=== PATIENT | female | born 2000 | race Caucasian/White ===

== ENCOUNTER 2023-06-21 16:49 | Emergency (ER) | payer OTHER, SELFPAY ==
[2023-06-21 16:55] VITALS: BP 100/45; PULSE 81; RESP 14; TEMP 36.9; O2SAT 99; BMI 20.9
--- NOTE | 2023-06-21 18:26 | CRLHL7_ITS ---
For Patients: As a result of the Century Cures Act, medical imaging exams and procedure reports are released immediately into your electronic medical record. You may view this report before your referring provider. If you have questions, please contact your health care provider. Indication: Cough Technique: Chest 1 view Comparison: None Findings/Impression: Cardiovascular and mediastinum: Heart size and vasculature are normal in caliber and appearance. Mediastinum is within normal limits. Lungs and pleural space: Lungs are hyper expanded. No sign of infiltrate or mass. No sign of pleural effusion. No pneumothorax. Bones and soft tissues: No significant findings. Dictated by Yeny Ospina MD @ 06/21/2023 6:44:29 PM (Electronically Signed)
[2023-06-21] MEDS: 0.9 % SODIUM CHLORIDE 1000 ml 1,000 ML IV (18:43)
[2023-06-21] MEDS: ONDANSETRON 2 MG/ML inj 4 MG IVP (18:47)
[2023-06-21 18:50] LABS: Basophils Absolute Auto 0.03 K/uL (0.00-0.30); Basophils Percent Auto 0.4 % (0.0-3.0); Eosinophils Absolute Auto 0.02 K/uL (0.00-0.50); Eosinophils Percent Auto 0.3 % (0.0-7.0); Hematocrit 37.7 % (33.0-51.0); Hemoglobin* 12.5 gm/dL (12.0-16.0); Immature Granulocytes Abs Auto 0.01 K/uL (0.00-0.30); Immature Granulocytes Pct Auto 0.1 %; Lymphocytes Percent Auto 24.7 % (20-44); Mean Corpuscular HGB Conc 33 gm/dL (32-36); Mean Corpuscular Hemoglobin 31 pg (26-34); Mean Corpuscular Volume 94 fL (80-100); Monocytes Percent Auto 5.2 % (0.0-11.0); Neutrophils Absolute Auto 5.32 K/uL (1.7-7.0); Neutrophils Percent Auto 69.3 % (42.0-72.0); Platelet Count* 277 K/uL (140-440); RDW Coefficient of Variation % 11.5 % (11.5-15.5); Red Blood Count 4.01 m/uL (4.00-5.20); White Blood Count* 7.68 K/uL (4.50-11.00)
--- NOTE | 2023-06-21 18:50 | ED.GENADULT ---
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 She comes in today because she has had 3 days of nausea, vomiting, and diarrhea. She does not report any fever, cough, or shortness of breath. She arrives here with normal vital signs. Related Data Home Medications Medication Instructions Recorded Confirmed norgestimate 0.25 mg-ethinyl 1 tab PO DAILY 06/21/23 06/21/23 estradiol 35 mcg tablet (Sprintec (28)) Previous Rx's Medication Instructions Recorded ondansetron HCl 4 mg tablet 4 mg PO Q6H #10 tabs 06/21/23 Allergies Allergy/AdvReac Type Severity Reaction Status Date / Time No Known Drug Allergies Allergy Verified 06/21/23 16:54 Review of Systems Status of ROS: Reports: 10 or more systems reviewed and unremarkable except as noted in History and below Narrative: Constitutional: No fevers, no weight gain or loss. Eyes: No discharge. No vision changes. HENT: No congestion, no sore throat, no ear pain. Cardiovascular: No chest pain, no palpitations. Respiratory: No shortness of breath, no wheezes, no cough. Gastrointestinal: Diffuse abdominal pain. Vomiting and diarrhea with nausea. Genitourinary: No dysuria, no hematuria. Musculoskeletal: Normal range of motion. Skin: No rashes, no pruritis. Neurological: No dizziness, weakness, sensory change, speech change. Endo/Heme/Allergies: No bruising or bleeding. No polydipsia. Pysch: no suicidality, no anxiety, no insomnia. All other systems reviewed and are negative. Exam Narrative: Exam Narrative: Constitutional: Well-developed, well-nourished, no acute distress. HEENT: Normocephalic, atraumatic. Neck: Normal range of motion. Nontender. Supple. Heart: Regular. No murmurs. Normal rate. Intact distal pulses. Lungs: Clear to auscultation. No chest discomfort. No wheezes, rhonchi, or rales. Abdomen: Normal bowel sounds. Diffuse tenderness. No rebound tenderness. Genitalia: Deferred. Back: No midline tenderness. Normal range of motion. Extremities: Normal range of motion. No injury. Skin: Intact. No rash. Warm. No erythema or pallor. Neurologic: No altered sensation. No weakness. Alert and oriented. Psychiatric: No suicidality. No anxiety or depression. No insomnia. Nursing notes and vitals signs are reviewed. Const: Vital Signs, click to edit/add: Vital Signs - 24 hr 06/21/23 16:55 Temperature 98.4 F Pulse Rate [Pulse Oximeter] 81 Respiratory Rate 14 Blood Pressure [Ri t Upper Arm] 100/45 L Pulse Oximetry 99 Oxygen Delivery Me thod Room Air Course Vital Signs Vital signs: Initial Vital Signs Temperature 98.4 F 06/21/23 16:55 Temperature Source Temporal Artery Scan 06/21/23 16:55 Pulse Rate 81 06/21/23 16:55 Pulse Rhythm Regular 06/21/23 16:55 Respiratory Rate 14 06/21/23 16:55 Blood Pressure 100/45 L 06/21/23 16:55 Blood Pressure Mean 63 L 06/21/23 16:55 Blood Pressure Position Sitting 06/21/23 16:55 Pulse Oximetry 99 06/21/23 16:55 Oxygen Delivery Method Room Air 06/21/23 16:55 Vital Signs Temperature 98.4 F 06/21/23 16:55 Pulse Rate 81 06/21/23 16:55 Respiratory Rate 14 06/21/23 16:55 Blood Pressure 100/45 L 06/21/23 16:55 Pulse Oximetry 99 06/21/23 16:55 Oxygen Delivery Method Room Air 06/21/23 16:55 Temperature 98.4 F 06/21/23 16:55 Pulse Rate 81 06/21/23 16:55 Respiratory Rate 14 06/21/23 16:55 Blood Pressure 100/45 L 06/21/23 16:55 Pulse Oximetry 99 06/21/23 16:55 Oxygen Delivery Method Room Air 06/21/23 16:55 Medications Administered Medications: Discontinued Medications Generic Name Dose Route Start Last Admin Trade Name Freq PRN Reason Stop Dose Admin Sodium Chloride 1,000 mls @ 1,000 mls/hr 06/21/23 18:30 06/21/23 19:38 0.9 % Sodium Chloride 1000 Ml IV 06/21/23 19:29 Infused .Q1H APARNA Infusion Ondansetron HCl 4 mg 06/21/23 18:26 06/21/23 18:47 Ondansetron 2 Mg/Ml Inj IVP 06/21/23 18:27 4 mg ONCE ONE Administration Medical Decision Making MDM Narrative Medical decision making narrative: This patient comes in with vomiting and diarrhea symptoms as described above. An IV was established where she received a L of normal saline and 4 mg of Zofran. She states that she is feeling better with these treatments. Lab results returned with reassuring findings. The patient is okay to be discharged home and did receive a prescription for Zofran. I encouraged use of Imodium as needed for diarrhea. Lab Data Labs: Lab Results 06/21/23 Range/Units 18:40 WBC 7.68 (4.50-11.00) K/uL RBC 4.01 (4.00-5.20) m/uL Hgb 12.5 (12.0-16.0) gm/dL Hct 37.7 (33.0-51.0) % MCV 94 (80-100) fL MCH 31 (26-34) pg MCHC 33 (32-36) gm/dL RDW Coeff of Tawana 11.5 (11.5-15.5) % Plt Count 277 (140-440) K/uL Neut % (Auto) 69.3 (42.0-72.0) % Lymph % (Auto) 24.7 (20-44) % [place] % (Auto) 5.2 (0.0-11.0) % Eos % (Auto) 0.3 (0.0-7.0) % Baso % (Auto) 0.4 (0.0-3.0) % Neut # (Auto) 5.32 (1.7-7.0) K/uL Lymph # (Auto) 1.90 (0.90-2.90) K/uL [place] # (Auto) 0.40 (0.00-0.90) K/UL Eos # (Auto) 0.02 (0.00-0.50) K/uL Baso # (Auto) 0.03 (0.00-0.30) K/uL Abs Immat Gran (auto) 0.01 (0.00-0.30) K/uL Imm/Tot Granulo (auto) 0.1 % Sodium 139 (135-149) mmol/L Potassium 3.5 L (3.6-5.1) mmol/L Chloride 101 (96-114) mmol/L Carbon Dioxide 24 (20-32) mmol/L Anion Gap 14 (7-15) mEq/L BUN 13 (5-24) mg/dL Creatinine 0.4 L (0.5-1.5) mg/dL Estimated Creat Clear 184.04 Estimated GFR 144 ml/min Glucose 91 (60-115) mg/dL Calcium 9.5 (8.4-10.6) mg/dL Imaging Data Chest x-ray: Radiologist's impression: Cardiovascular and mediastinum: Heart size and vasculature are normal in caliber and appearance. Mediastinum is within normal limits. Lungs and pleural space: Lungs are hyper expanded. No sign of infiltrate or mass. No sign of pleural effusion. No pneumothorax. Discharge Plan Discharge Clinical Impression: Gastroenteritis Patient Disposition: Home, Self-Care Condition: Stable Additional Instructions: Use Zofran as needed and directed for nausea symptoms. Use Imodium as directed also for diarrhea symptoms. Increase diet and liquids as tolerated. Follow up with MD return if worsening. Prescriptions: New ondansetron HCl 4 mg tablet 4 mg PO Q6H Qty: 10 0RF No Action norgestimate-ethinyl estradiol [Sprintec (28)] 0.25-35 mg-mcg tablet 1 tab PO DAILY Follow Up/Referrals: Allie Alvarado MD [Primary Care Provider] - Stand Alone Forms: [employer] Info Instructions
[2023-06-21 18:51] LABS: Slide Review Reflex No
[2023-06-21 19:09] LABS: Chloride* 101 mmol/L (96-114)
[2023-06-21 19:10] LABS: Potassium* 3.5 mmol/L (3.6-5.1); Sodium* 139 mmol/L (135-149)
[2023-06-21 19:12] LABS: Creatinine* 0.4 mg/dL (0.5-1.5); Est. Creatinine Clearance* 184.04; Estimated Glomerular Filt Rate 144 ml/min
[2023-06-21 19:13] LABS: Blood Urea Nitrogen* 13 mg/dL (5-24); Calcium* 9.5 mg/dL (8.4-10.6); Carbon Dioxide* 24 mmol/L (20-32); Glucose* 91 mg/dL (60-115)
[2023-06-21 19:17] LABS: Anion Gap 14 mEq/L (7-15)
== END 2023-06-21 20:08 | disposition home or self-care (01) ==
PROVIDERS: Emergency Provider Emergency Medicine Emergency Medical Services; PCP Family Medicine
DX: K52.9 Noninfective gastroenteritis and colitis, unspecified (principal)
CPT/HCPCS: 36415; 71045; 80048; 85025; 96374; 99283; 99284; J2405; J7030

== ENCOUNTER 2024-06-12 09:09 | Outpatient (CLI) | payer OTHER, SELFPAY | END 2024-06-12 09:10 | disposition home or self-care (01) | LOC: NFLDREF 06-13 08:21 | PROVIDERS: PCP Family Medicine; Referring Provider Family Medicine; Visit Provider Nurse Practitioner | DX: N89.8 Other specified noninflammatory disorders of vagina (principal); B37.31 Acute candidiasis of vulva and vagina | CPT/HCPCS: 87086 ==

== ENCOUNTER 2024-10-14 13:51 | Outpatient (CLI) | payer OTHER, SELFPAY | END 2024-10-14 13:52 | disposition home or self-care (01) | LOC: US 13:51 | PROVIDERS: PCP Family Medicine; Visit Provider Obstetrics & Gynecology | DX: Z34.91 Encounter for supervision of normal pregnancy, unspecified, first trimester (principal); O20.9 Hemorrhage in early pregnancy, unspecified; O34.81 Maternal care for other abnormalities of pelvic organs, first trimester; N83.11 Corpus luteum cyst of right ovary; Z3A.01 Less than 8 weeks gestation of pregnancy | CPT/HCPCS: 76817 ==

== ENCOUNTER 2025-04-15 16:54 | Outpatient (CLI) | payer OTHER, SELFPAY ==
[2025-04-15 17:06] VITALS: PULSE 83; O2SAT 99
[2025-04-15 17:07] VITALS: BP 106/58; PULSE 78
[2025-04-15 17:16] VITALS: TEMP 37.1
[2025-04-15 17:22] LABS: Amnisure Rom* Negative
[2025-04-15 18:30] LABS: Appearance Urine Clear (Clear)
[2025-04-15 18:55] VITALS: PULSE 68; O2SAT 100
--- NOTE | 2025-04-15 18:59 | P.OBLDTN_ITS ---
OB - Triage/Final Diagnosis Visit Information Date of evaluation: 04/15/25 Narrative: The patient is a 25year old 3 para 1 at 33 4/7 weeks gestation who was seen in clinic yesterday by Dr Alvarado and noted intermittent leaking of fluid. Had negative BRIDGET swab and was told to come to L&D to get amniosure to rule out SROM. Pt did have intercourse the day prior. Dr Alvarado did speculum exam and reported moderate amount white d/c, she did not think appeared consistent with amniotic fluid per her report to me. Pt told RN at Center she has had intermittent cramping for about a week. no pattern. not increasing. Amniosure was negative. FHT 140's moderate variabiltiy, +accels, no decels. [place] with random contractions, no pattern. Plan d/c home with labor precautions. Follow up with Dr Alvarado as scheduled, sooner if needed. Evaluation Laboratory results: Laboratory Tests 04/15/25 04/15/25 Range/Units 18:10 17:03 Urine Color Yellow (Yellow) Urine Appearance Clear (Clear) Urine pH 7.0 (5.0-8.5) Ur Specific [place] 1.020 (1.000-1.030) Urine Protein Negative (Negative) Urine Glucose (UA) Negative (Negative) Urine Ketones Trace A (Negative) Urine Blood Negative (Negative) Urine Nitrite Negative (Negative) Urine Bilirubin Negative (Negative) Urine Urobilinogen 0.2 (0.2-1.0) Ur Leukocyte Esterase Negative (Negative) Membrane Rupture Negative Vital signs: Vital Signs - 24 hr 04/15/25 17:06 04/15/25 17:07 04/15/25 17:16 Temperature 98.8 F Pulse Rate 78 Blood Pressure 106/58 L Pulse Oximetry 99 04/15/25 18:55 Temperature Pulse Rate Blood Pressure Pulse Oximetry 100 Fetus (Single) Heart Rate Baseline: 140 Fetus (Infant A) Longterm Variability: Moderate (11-25) Monitor Accelerations: Present Monitor Decelerations: None
[2025-04-15 19:00] VITALS: PULSE 79; O2SAT 99
--- NOTE | 2025-04-15 19:11 | PC.OBNST ---
NST Note NST Note Start: 04/15/25 17:01 Freq: ONCE Status: Active Protocol: Document 04/15/25 19:08 TRICIA (Rec: 04/15/25 19:10 TRICIA Desktop) NST Note 3 Para (# of births) 1 EDC 05/30/25 Gestational Age In 33 Weeks & 4 Days Weeks & Days Patient Presented Other with Complaint(s) of Other Complaints questionable ROM Reactive Yes Appropriate for Yes Gestational Age MARVEL Whitlock RN Date 04/15/25 Reactive Yes Appropriate for Yes Gestational Age MARVEL Casanova RN Date 04/15/25 OB NST charge Yes Complete NST Note Yes via Write Note The provider's electronic signature indicates the NST is reactive/appropriate for gestational age. *Note to provider: If an addendum is required, open the patient's chart and click on the note under the Nurse/Allied Health tab.
== END 2025-04-15 19:05 | disposition home or self-care (01) ==
LOC: OB OUT 16:54 → OB 17:01
PROVIDERS: PCP Family Medicine; Visit Provider Family Medicine
DX: O47.03 False labor before 37 completed weeks of gestation, third trimester (principal); Z3A.33 33 weeks gestation of pregnancy
CPT/HCPCS: 59025; 81003; 84112; G0463

== ENCOUNTER 2025-04-26 10:53 | Outpatient (CLI) | payer OTHER, SELFPAY ==
[2025-04-26 11:15] VITALS: BP 108/59; PULSE 83
[2025-04-26 11:18] VITALS: RESP 16; TEMP 37; O2SAT 98
[2025-04-26 11:33] LABS: Appearance Urine Slightly Cloudy (Clear)
[2025-04-26 11:45] LABS: Amnisure Rom* Negative
--- NOTE | 2025-04-26 12:28 | PC.OBNST ---
NST Note NST Note Start: 04/26/25 10:58 Freq: ONCE Status: Active Protocol: Document 04/26/25 12:27 LP (Rec: 04/26/25 12:28 LP No Response) NST Note 3 Para (# of births) 1 EDC 05/30/25 Gestational Age In 35 Weeks & 1 Days Weeks & Days Patient Presented Contractions/cramping,Leaking fluid,Headache with Complaint(s) of Reactive Yes Appropriate for Yes Gestational Age MARVEL Lopez RN Date 04/26/25 Reactive Yes Appropriate for Yes Gestational Age MARVEL Benítez RN Date 04/26/25 OB NST charge Yes Complete NST Note Yes via Write Note The provider's electronic signature indicates the NST is reactive/appropriate for gestational age. *Note to provider: If an addendum is required, open the patient's chart and click on the note under the Nurse/Allied Health tab.
== END 2025-04-26 12:10 | disposition home or self-care (01) ==
LOC: OB OUT 10:53 → OB 10:55
PROVIDERS: PCP Family Medicine; Visit Provider Family Medicine
DX: O47.03 False labor before 37 completed weeks of gestation, third trimester (principal); Z3A.35 35 weeks gestation of pregnancy
CPT/HCPCS: 59025; 80306; 81001; 81003; 84112; G0463

== ENCOUNTER 2025-05-05 17:01 | Outpatient (CLI) | payer OTHER, SELFPAY ==
[2025-05-05 17:19] VITALS: BP 110/61; PULSE 88
[2025-05-05 17:20] VITALS: RESP 18; TEMP 36.6
--- NOTE | 2025-05-05 17:56 | PM.OBLDTN ---
OB - Triage/Final Diagnosis Visit Information Time Seen by Provider: 17:45 Date Seen: 05/05/25 Narrative: The patient is a 25 year old 2 para 1 at 36.3 weeks gestation, who presents with headache, sinus congestion, sore throat, and uterine cramping. Reports that sore throat, congestion, and runny nose started about 2 days ago. Headache has been ongoing since that time as well and never fully gone away but intensity increases and decreases. Currently rates headache pain at 2-3/10 but at it's worst, can be 5-6/10. Denies blurry vision or other vision changes. No RUQ pain or edema. Has also had intermittent uterine cramping and contractions. No vaginal bleeding or LOF. Normal movement. Has had two episodes of cramping/contractions since arrival which were not picked up on tocometry Exam: Gen: alert, pleasant, NAD Head: no frontal or maxillary sinus tenderness to palpation. Resp: breathing comfortably on RA CV: extremities warm and well perfused; no LE edema Abd: gravid, nontender to palpation of RUQ SVE: posterior, 0 cm dilated A/P: Headache - suspect related to URI. COVID test pending along with pre-eclampsia labs. BP WNL. Reviewed supportive cares including nasal saline, Flonase, cetirizine, etc. Offered patient repeat dose of Tylenol (last dose around 12:30) but she declined. Uterine cramping - possible false labor/[place] montes as she has not made cervical change since last check around 35 weeks gestation. Offered IV fluids, which patient declined Encouraged her to work on PO hydration Pending return of labs and completion of NST, patient may be discharged home. Has f/up appointment on 05/07 with primary OB, Dr. Alvarado. Encouraged follow up sooner if changes in the interim. Evaluation Cervical dilation (cm): 0 Laboratory results: Laboratory Tests 05/05/25 05/05/25 Range/Units 17:44 17:42 WBC Pending RBC Pending Hgb Pending Hct Pending MCV Pending MCH Pending MCHC Pending Plt Count Pending BUN Pending Creatinine Pending Estimated GFR Pending AST Pending ALT Pending Urine Creatinine Pending Protein/Creatinin Ratio Pending Urine Total Protein Pending Urine Opiates Screen Pending Ur Oxycodone Screen Pending Urine Methadone Screen Pending Ur Barbiturates Screen Pending U Tricyclic Antidepress Pending Ur Phencyclidine Scrn Pending Ur Amphetamines Screen Pending U Methamphetamines Scrn Pending U Benzodiazepines Scrn Pending Urine Cocaine Screen Pending U Marijuana (THC) Screen Pending Ur Drug Screen Comment See Note SARS-CoV-2 (PCR) Pending Vital signs: Vital Signs - 24 hr 05/05/25 17:19 05/05/25 17:20 Temperature 97.8 F Pulse Rate 88 Respiratory Rate 18 Blood Pressure 110/61 Total Time Spent Total Time Spent: 45 minutes spent in chart review, examining patient, and documentation on day of encounter
[2025-05-05 17:57] LABS: Hematocrit* 32.1 % (33.0-51.0); Hemoglobin* 11.0 gm/dL (12.0-16.0); Mean Corpuscular HGB Conc 34 gm/dL (32-36); Mean Corpuscular Hemoglobin 32 pg (26-34); Mean Corpuscular Volume 93 fL (80-100); Red Blood Count* 3.45 m/uL (4.00-5.20); White Blood Count* 6.79 K/uL (4.50-11.00)
[2025-05-05 17:59] LABS: Slide Review Reflex No
[2025-05-05 18:02] LABS: Cannabinoid Screen Urine Negative (Negative); Methamphetamines Screen Urine Negative (Negative); Tricyclic Antidepressant Urine Negative (Negative)
[2025-05-05 18:16] LABS: Alanine Aminotransferase* 13 U/L (4-35); Aspartate Amino Transferase* 24 U/L (12-35); Blood Urea Nitrogen* 8 mg/dL (5-24); Creatinine* 0.5 mg/dL (0.5-1.5); Estimated Glomerular Filt Rate 135 ml/min
[2025-05-05 18:19] LABS: Protein Creatinine Ratio Urine 0.44 (0-0.19)
[2025-05-05 18:25] LABS: SARS PCR* Negative SARS-CoV-2 (Negative)
[2025-05-05 19:20] VITALS: BP 103/57; PULSE 75
[2025-05-05] MEDS: ACETAMINOPHEN 500 MG TABLET 1000 MG PO (19:28)
[2025-05-05 19:39] VITALS: BP 111/65; PULSE 68
[2025-05-05 20:02] VITALS: BP 102/64; PULSE 73
--- NOTE | 2025-05-05 21:31 | PC.OBNST ---
NST Note NST Note Start: 05/05/25 17:06 Freq: ONCE Status: Active Protocol: Document 05/05/25 21:10 CJM (Rec: 05/05/25 21:31 CJM No Response) NST Note 3 Para (# of births) 1 EDC 05/30/25 Gestational Age In 36 Weeks & 3 Days Weeks & Days Patient Presented Contractions/cramping,Headache with Complaint(s) of Other Complaints pt comes to triage with overall feeling unwell. Pt then starts having some contractions while here. Reactive Yes Appropriate for Yes Gestational Age RN Laura Gray Rn Date 05/05/25 Reactive Yes Appropriate for Yes Gestational Age MARVEL Shields MD Date 05/05/25 OB NST charge Yes Complete NST Note Yes via Write Note The provider's electronic signature indicates the NST is reactive/appropriate for gestational age. *Note to provider: If an addendum is required, open the patient's chart and click on the note under the Nurse/Allied Health tab.
[2025-05-07 11:24] LABS: Protein Creatinine Ratio Urine 0.29 (0-0.19)
[2025-05-07 11:28] LABS: Total Volume 24 Hour Urine 2300 ml; Urine Creatinine mg/24 Hour 1120 mg/Day
== END 2025-05-05 21:10 | disposition home or self-care (01) ==
LOC: OB OUT 17:02 → OB 17:03
PROVIDERS: PCP Family Medicine; Visit Provider Family Medicine
DX: O47.03 False labor before 37 completed weeks of gestation, third trimester (principal); Z3A.36 36 weeks gestation of pregnancy
CPT/HCPCS: 36415; 59025; 80306; 82565; 82570; 84156; 84450; 84460; 84520; 85027; 87086; 87635; G0463; A9270

== ENCOUNTER 2025-05-21 00:24 | Inpatient (IN) | payer OTHER, SELFPAY ==
[2025-05-20 21:53] VITALS: BP 116/68; PULSE 93
[2025-05-20 21:54] VITALS: PULSE 102; RESP 14; TEMP 37; O2SAT 97
[2025-05-20 22:15] LABS: Amnisure Rom* Negative
[2025-05-21] VITALS (48 sets, daily range): BP systolic 100–141; BP diastolic 55–77; PULSE 71–121; RESP 16–18; TEMP 36.4–37.2; O2SAT 97–100; BMI 28.3
[2025-05-21 01:00] LABS: Hematocrit* 30.1 % (33.0-51.0); Hemoglobin* 10.0 gm/dL (12.0-16.0); Immature Granulocytes Abs Auto 0.07 K/uL (0.00-0.30); Immature Granulocytes Pct Auto 0.8 %; Lymphocytes Absolute Auto 1.60 K/uL (0.90-2.90); Mean Corpuscular HGB Conc 33 gm/dL (32-36); Mean Corpuscular Hemoglobin 31 pg (26-34); Mean Corpuscular Volume 92 fL (80-100); RDW Coefficient of Variation % 11.9 % (11.5-15.5); Red Blood Count* 3.26 m/uL (4.00-5.20); White Blood Count* 8.86 K/uL (4.50-11.00)
[2025-05-21 01:01] LABS: Slide Review Reflex No
[2025-05-21] MEDS: AMPICILLIN 2 GM in 0.9 % SODIUM CHLORIDE Mini-bag 100 ML IVPB (01:35)
[2025-05-21 02:49] LABS: Cannabinoid Screen Urine Negative (Negative); Methamphetamines Screen Urine Negative (Negative); Tricyclic Antidepressant Urine Negative (Negative)
[2025-05-21] MEDS: AMPICILLIN 1 GM in 0.9 % SODIUM CHLORIDE Mini-bag 100 ML IVPB ×3 (05:40→13:24)
--- NOTE | 2025-05-21 07:52 | P.OBHP_ITS ---
OB - H&P: HPI Labor/Induction History of Present Illness Date Seen: 05/21/25 Chief Complaint: The patient is a 25 year old 3 para 1011 at 38+5 weeks gestation by 7 week US dating, who presents with painful, regular contractions. Chief complaint: maternity Narrative: Sydnee Jon is a 25 year old at 38+5 weeks by 7 week US here for labor. Patient developed painful, regular contractions late last night which brought her into L&D for evaluation. Cervix on arrival 2 cm and progressed to 3.5 cm an hour later. Contractions did space out overnight, but now this morning becoming stronger and more regular again. has been uncomplicated other than GBS+ testing. History of Present Dating criteria: based on 1st trimester US only care: good care Ultrasounds: normal 1st trimester US and normal mid trimester US Medical complications: psychiatric (is following with psychiatry for depression/anxiety) Labs Blood type: A (+) positive Rubella: immune RPR/VDLR: nonreactive GBS status: positive HBsAG: negative Review of Systems Status of ROS: Reports: 6 or more systems reviewed and unremarkable except as noted in History and below Meds Home Medications and Allergies Home Medications ?Medication ?Instructions ?Recorded ?Confirmed ?Type vitamins no.167-folic 1 tab PO QDAY 10/14/24 05/20/25 History acid 400 mcg-dha 25 mg chewable tablet (One-A-Day ) lamotrigine 200 mg tablet 200 mg PO DAILY 03/24/25 History ondansetron 4 mg disintegrating 4 mg PO Q8H PRN nausea /vomiting 03/24/25 05/20/25 History tablet Allergies Allergy/AdvReac Type Severity Reaction Status Date / Time No Known Drug Allergies Allergy Verified 05/20/25 22:28 OB - H&P: Exam Physical Exam: Vital signs: Temp Pulse Resp BP Pulse Ox 97.9 F 82 16 114/69 99 05/21/25 05:42 05/21/25 07:50 05/21/25 05:42 05/21/25 07:50 05/21/25 04:10 Constitutional: Constitutional: no acute distress Routine HEENT Exam: Head: Present atraumatic Eye: Present EOMI and normal appearance ENT: Present mucous membranes moist Routine Neck Exam: Neck: Present full ROM Routine Respiratory Exam: Respiratory: Present CTA bilaterally Routine Cardiovascular Exam: Cardiovascular: RRR Detailed Labor and Delivery Exam: Patient Gravid: yes Dilation (cm): 5 Effacement (%): 90 Cervix position: mid Consistency: soft Contraction frequency (min): 8 Contraction intensity: Strong/Firm Fetus (Single): Station: -1 Amniotic Membrane Status: AROM Amniotic Membrane Fluid Description: Clear Heart Rate Baseline: 130 Monitor Accelerations: Present Monitor Decelerations: None Care Home Variability: Moderate (6-25) Routine Extremities Exam: Extremities: Present full ROM and normal inspection Routine Back/Spine/Pelvis Exam: Back/Spine: full ROM Routine Skin Exam: Present intact and normal turgor Routine Neurological Exam: Present alert, oriented X3 and CN II-XII intact Routine Psychiatric Exam: Present normal affect and normal thought process OB - Results Labs Labs: Short CBC 05/21/25 Range/Units 00:54 WBC 8.86 (4.50-11.00) K/uL Hgb 10.0 L (12.0-16.0) gm/dL Hct 30.1 L (33.0-51.0) % Plt Count 281 (140-440) K/uL OB - Problem Based A/P Additional Plan (1) Active labor at term: Status: Acute (2) KARLA (generalized anxiety disorder): Status: Acute (3) Depression: Status: Acute (4) Positive GBS test: Status: Acute Plan Antibiotics have been started overnight for +GBS, will continue per protocol. Continue expectant management now that she has undergone AROM. HIV testing was inadvertently not done with labs, this has been ordered. Epidural per patient request. 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 Delivery/Labor/Induction Plan Plan: expectant management
[2025-05-21 09:15] LABS: HIV 1/2/P24 Combo Screen* Negative (Negative)
[2025-05-21] MEDS: LACTATED RINGERS 1000 ML 1,000 ML 1200 ML IV (12:18)
[2025-05-21] MEDS: LIDOCAINE 2% (PF) 5 ML VIAL EPIDURAL (12:55)
[2025-05-21] MEDS: ROPIVACAINE 0.2% 100 ml 100 ML 12 MG EPIDURAL (13:07)
--- NOTE | 2025-05-21 13:14 | PM.ANBPRC ---
[facility] Medical History (Updated 05/21/25 @ 08:06 by Allie Alvarado MD) Pyelonephritis ?N12 - Tubulo-interstitial nephritis, not specified as acute or chronic (ICD-10) KARLA (generalized anxiety disorder) ?F41.1 - Generalized anxiety disorder (ICD-10) Depression ?F32.A - Depression, unspecified (ICD-10) Family History (Updated 05/21/25 @ 08:03 by Allie Alvarado MD) Mother Alcohol dependence Maternal Grandmother Colon cancer Breast cancer Social History What is your current living situation?: I presently have a place to live Problems where you live: no known problems In the past 12 months, utilities in danger of being shut off: no In past 12 months, lack of transportation kept you from medical appts, meetings, work, or getting things needed for daily living: no In the past 12 mos, have been you worried that your food would run out before you had money to buy more?: never true In the past 12 mos, the food you bought just didn't last and you didn't have money to buy more?: never true Smoking Status: Never smoker How often does anyone, including family, friends and others, physically hurt you: never How often does anyone, including family, friends and others, insult or talk down to you: never How often does anyone, including family, friends and others, threaten you with harm: never How often does anyone, including family, friends and others, scream or curse at you: never Meds Home Medications and Allergies Home Medications ?Medication ?Instructions ?Recorded ?Confirmed ?Type vitamins no.167-folic 1 tab PO QDAY 10/14/24 05/20/25 History acid 400 mcg-dha 25 mg chewable tablet (One-A-Day ) lamotrigine 200 mg tablet 200 mg PO DAILY 03/24/25 05/20/25 History ondansetron 4 mg disintegrating 4 mg PO Q8H PRN nausea/vomiting 03/24/25 05/20/25 History tablet Allergies Allergy/AdvReac Type Severity Reaction Status Date / Time No Known Drug Allergies Allergy Verified 05/20/25 22:28 Results Labs Labs: Laboratory Results - last 24 hr 05/20/25 05/21/25 05/21/25 21:46 00:54 02:30 WBC 8.86 RBC 3.26 L Hgb 10.0 L Hct 30.1 L MCV 92 MCH 31 MCHC 33 RDW Coeff of Tawana 11.9 Plt Count 281 Neut % (Auto) 70.9 Lymph % (Auto) 17.9 L [place] % (Auto) 8.9 Eos % (Auto) 1.4 Baso % (Auto) 0.1 Neut # (Auto) 6.28 Lymph # (Auto) 1.60 [place] # (Auto) 0.80 Eos # (Auto) 0.12 Baso # (Auto) 0.01 Abs Immat Gran (auto) 0.07 Imm/Tot Granulo (auto) 0.8 Membrane Rupture Negative Urine Opiates Screen Negative Ur Oxycodone Screen Negative Urine Methadone Screen Negative Ur Barbiturates Screen Negative U Tricyclic Antidepress Negative Ur Phencyclidine Scrn Negative Ur Amphetamines Screen Negative U Methamphetamines Scrn Negative U Benzodiazepines Scrn Negative Urine Cocaine Screen Negative U Marijuana (THC) Screen Negative Ur Drug Screen Comment See Note HIV 1&2 Ab/P24 Ag 4thGn Negative Blood Type A Positive Antibody Screen NEGATIVE Vital Signs Vital Signs: Last Vital Signs Temp 98.5 F 05/21/25 12:41 Pulse 105 H 05/21/25 13:14 Resp 16 05/21/25 12:41 BP 115/63 05/21/25 13:14 Pulse Ox 99 05/21/25 13:12 Weight: 72.575 kg Height: 160.02 cm Anesthesia Procedures Epidural Insertion Patient Location: OB Start Time: 12:30 Stop Time: 13:15 Start Date: 05/21/25 Stop Date: 05/21/25 Reason for Block: procedure for pain Patient Position: sitting Performed By: Tg Lara Preanesthetic Checklist: IV checked, site marked, risks and benefits discussed, monitors and equipment checked, pre-op evaluation, timeout performed and anesthesia consent Prep: chlorhexidine gluconate Monitoring: blood pressure monitoring, continuous pulse oximetry and heart rate Approach: midline Vertebral Space: lumbar (1-5) Epidural Technique: JESSICA saline Needle Type: Tuohy needle Injection Technique: continuous catheter Needle gauge: 17 Needle Length (cm): 10 cm Needle Insertion Depth (cm): 5 Catheter Gauge: 19 Catheter Type: multi-orifice Catheter at skin depth (cm): 15 Test Dose Result: negative and lidocaine 1.5% with epinephrine 1 to 200,000
--- NOTE | 2025-05-21 13:27 | PM.OBPNL ---
Subjective Date Seen: 05/21/25 Narrative: Sydnee is a 25 yo at 38+5 here in active labor. Has made steady cervical change throughout the day, however contractions stronger about an hour ago and due to nly being 7 cm, requested an epidural. She is now comfortable and feeling intermittent pressure. She continues to leak clear fluid. Objective Vital Signs: Last Vital Signs Temp 98.5 F 05/21/25 12:41 Pulse 88 05/21/25 13:16 Resp 16 05/21/25 12:41 BP 112/63 05/21/25 13:16 Pulse Ox 99 05/21/25 13:12 Pelvic Exam Dilation (cm): 7 Effacement (%): 90 Station: 0 Contractions Monitor mode: External Contraction Frequency: 5 Contraction pattern: Regular Contraction intensity: Strong/Firm Assessment Assessment: active labor Station: 0 Amniotic Membrane Status: AROM Status: Category l Heart Rate Baseline: 130 Monitor Accelerations: Present Monitor Decelerations: None Plan Plan: Continue expectant management as long as making cervical change. Anticipate .
[2025-05-21] MEDS: CALCIUM CARBONATE 500 MG CHEW PO (14:27)
[2025-05-21] MEDS: OXYTOCIN 30 unit/500 ML in NS 30 UNIT/500 ML BAG IVPB (14:52)
[2025-05-21] MEDS: LACTATED RINGERS 1000 ML 1,000 ML 125 ML IV (15:00)
--- NOTE | 2025-05-21 15:37 | W.PM.VAGD1_ITS ---
Procedure Delivery date: 05/21/25 Procedure Done: Global Delivery augmentation: rupture of membranes Delivery monitor: external FHT and external uterine Route of delivery: Laceration description: None Estimated blood loss (mL): 50 Anesthesia type: Epidural Disposition: floor Narrative: The patient is a 25 year-old admitted on 05/20/2025 at 38 Weeks, 4 Days gestation for active labor.? Cervical exam on admission was 3.5 cm/60 % effaced/-2 station with membranes intact in vertex presentation.? Contractions were every 4-7 minutes.? heart rate demonstrated baseline 130 bpm with moderate variability, + accelerations, - decelerations; a category 1 tracing.? aROM occurred at 0742 with clear fluid. ? Labor Analgesia:? epidural ? Pitocin:? yes, with pushing and after delivery ? Labor onset:? 05/21/2025 0000 ? Complete:? 1507 ? Pushing:? 1515 ? heart tones during second stage were category 1. ? At 1524 a viable female delivered in vertex OA presentation over intact perineum via spontaneous vaginal delivery.? was placed on maternal abdomen.? Cord was clamped and cut after a 30-60 second delay.? Nose and mouth were bulb suctioned.? weight pending.? 9 at 1 minute and 9 at 5 minutes.? Shoulder dystocia: no.? Nuchal cord: no. ? Placenta delivered spontaneously and complete at 1529 with a 3 vessel cord. ? Mother and were stable after delivery. ? Lacerations:? 0 ? Blood loss: 50 mL. Blood loss measurement type: QBL ? Sponge and needles counts are correct. [place] Infant Infant Gender: Female presentation: vertex Placental Delivery Description: Spontaneous Cord Description: 3 Vessels
[2025-05-21] MEDS: IBUPROFEN 600 MG TABLET PO (18:41)
[2025-05-21] MEDS: ACETAMINOPHEN 500 MG TABLET 1000 MG PO (22:47)
[2025-05-21] MEDS: 5 % DEXTROSE/0.45% SOD CHLOR 1,000 ML 125 ML IV (23:01)
[2025-05-22] VITALS (20 sets, daily range): BP systolic 102–161; BP diastolic 62–87; PULSE 63–183; RESP 13–20; TEMP 36.6–37.3; O2SAT 94–99
[2025-05-22] MEDS: LACTATED RINGERS 1000 ML 1,000 ML 125 ML IV (06:28)
[2025-05-22 06:33] LABS: Hemoglobin* 9.4 gm/dL (12.0-16.0)
[2025-05-22] MEDS: 5 % DEXTROSE/0.45% SOD CHLOR 1,000 ML 125 ML IV (09:07)
--- NOTE | 2025-05-22 09:15 | PM.OBPNVD1 ---
OB - PN:Subj Subjective Time Seen by Provider: 07:45 Date Seen: 05/22/25 Interval history: 25 yo G3 now P2 PPD #1 from at 38+5 weeks. NPO for post- tubal ligation today. Overall feeling well. Bleeding is normal, like a heavy period. Voiding, no BM. Ibuprofen has been effective for pain control. Planning to breastfeed, but open to supplementation. not latching well. OB - PN: Obj Exam Physical Exam: Vital signs: Temp Pulse Resp BP Pulse Ox O2 Del Method 98.1 F 88 16 110/75 99 Room Air 05/22/25 03:45 05/22/25 08:20 05/22/25 08:20 05/22/25 08:20 05/22/25 08:20 05/22/25 08:20 Narrative: General appearance: Well-appearing adult female. Alert, oriented and appropriate. Sitting up in hospital bed. HEENT: EOMI, no conjunctival injection or discharge. MMM. Neck: Supple. CV: RRR, no rubs, murmurs or extra heart sounds. Pulm: CTAB, no wheezes, rales or rhonchi. Abdomen: Soft, mild tenderness. Fundus palpated 2 cm below the umbilicus. MSK: Moving all extremities. Ext: Warm and well-perfused. No LE edema. Skin: No rashes appreciated over exposed skin. Neuro: Grossly normal strength and sensation. No focal deficits. Psych: Normal affect. OB - PN: Obj Data Labs Labs: Laboratory Results - last 24 hr 05/21/25 05/22/25 00:54 05:46 Hgb 9.4 L HIV 1&2 Ab/P24 Ag 4thGn Negative OB - PN: A/P Delivery Assessment and Plan (1) Active labor at term: Problem details: on 05/21/25 at 38w5d. THC + in , UDS neg on admission. Planning PP tubal ligation 05/22/25. Status: Acute Assessment and Plan: - Normal post- cares - Tubal ligation today - Anticipate discahrge 05/23/25 (2) KARLA (generalized anxiety disorder): Status: Acute Assessment and Plan: - Continue lamotrigine 200 mg daily (3) Depression: Status: Acute Assessment and Plan: - Continue lamotrigine 200 mg daily (4) Positive GBS test: Status: Acute
--- NOTE | 2025-05-22 12:51 | P.EN_ITS ---
Chart Event Note Time Seen by Provider: 11:00 Date Seen: 05/22/25 Chart Event Note: Presented to patient's beside to discuss upcoming surgery and resign consent form. She understands the intended surgery: bilateral salpingectomy via mini- laparotomy for the purpose of permanent sterilization. We discussed risks/benefits/alternatives of permanent sterilization. We discussed that there should be clear understanding this is permanent and irreversible. The mechanism of action is to prevent conception by blocking transport of sperm from the lower genital tract to an ovulated oocytes. My preferred method of sterilization is salpingectomy. Salpingectomy is the removal of bilateral fallopian tubes. There is a potential opportunity to decrease the risk of ovarian cancer in patients who already are undergoing pelvic surgery for benign indications. It can decrease the risk of future ovarian cancer by as much as 40-60%. I informed patient that most women who choose sterilization do not regret their decision. CREST study report that 5 year risk of regret is about 7%. Cumulative risk of regret w/in 14 years of procedure is 20% for patient <30 y/o and 6% >30 years of age. Sterilization can be done at the time of delivery or after a vaginal delivery. Interval sterilization can also be performed but this is done laparoscopically. We discussed risks of surgery including pain, bleeding, infection, and damages to the surrounding structures of the operative site. We also reviewed postoperative expectations and recovery course. Patient is aware of alternatives such as medical contraception, LARCs, partner vasectomy etc. After counseling patient was clear and consistent with desire for permanent sterilization and would like to proceed. Consents signed.
[2025-05-22] MEDS: BUPIVACAINE 0.5 %/EPI 1:200K 30 ML INJECTION (13:05)
--- NOTE | 2025-05-22 13:46 | P.ANES_ITS ---
Anesthesia Charges Start Date/Time Anesthesia Start Date: 05/22/25 Anesthesia Start Time: 12:41 Stop Date/Time Anesthesia Stop Date: 05/22/25 Anesthesia Stop Time: 13:44 Coding CPT Codes CPT Codes: ANESTH SURG LOWER ABDOMEN - 50311 ([id number]) P2 - PATIENT W/MILD SYST DISEASE, QZ - HOUSING ASSISTANT PROPERTY MANAGER SVC W/O HEATING AND VENTILATION ENGINEER BY
--- NOTE | 2025-05-22 13:46 | W.ANESCHARGE ---
Anesthesia Charges Start Date/Time Anesthesia Start Date: 05/22/25 Anesthesia Start Time: 12:41 Stop Date/Time Anesthesia Stop Date: 05/22/25 Anesthesia Stop Time: 13:44 Coding CPT Codes CPT Codes: ANESTH SURG LOWER ABDOMEN - 41923 ([id number]) P2 - PATIENT W/MILD SYST DISEASE, QZ - ZIPPER TRIMMER SVC W/O MAIL DISTRIBUTOR BY
[2025-05-22] MEDS: SODIUM CHLORIDE 0.9 % (FLUSH) 10 ML SYRINGE IVF (14:59)
--- NOTE | 2025-05-22 15:51 | W.PM.GYNPROC ---
Procedure Note Time Seen by Provider: 12:00 Date of procedure: 05/22/25 Will [facility] bill your pro fee for this procedure?: Yes Procedure: Preoperative diagnosis: Sydnee is a 25-year-old 3 now para 2012 who desires permanent sterilization, day 1. Postoperative diagnosis: Same. Procedure: Mini laparotomy with bilateral salpingectomy Anesthesia: General Surgeon: Maryana Eugene MD EBL: <5 mL Specimen: Bilateral fallopian tubes to pathology Findings: Increased central adiposity. The fundus was noted to be 1 cm below the umbilicus. The uterus, bilateral fallopian tubes and ovaries all appeared normal. Procedure: Patient was taken to the operating room where general anesthetic was found to be adequate. Patient voided prior to coming into the OR. She was placed in the dorsal supine position and an exam under anesthesia was performed with findings stated above. She was then prepped and draped in a normal sterile manner. 6 mL of 0.5% bupivacaine with epinephrine were injected underneath the skin prior to incision. A 3 cm incision was made inferior to the umbilicus. This was carried through to the underlying layer of fascia sharply with scalpel. The fascia was identified, grasped with 2 Sarina clamps and divided with scalpel. This incision was extended laterally bluntly. The peritoneum was identified and entered bluntly. A small Donovan, self-retaining retractor was placed. portion of the procedure. The patient was placed in a slight Trendelenburg position. The left fallopian tube was grasped with 2 babcok clamps and brought to the incision. The fallopian tube was removed by performing serial pedicles with the hand-held LigaSure dissecting forceps. The fallopian tube was removed from the uterus at the cornual aspect. Excellent hemostasis was noted. The right fallopian tube was identified, grasped, and removed in a similar manner. Again excellent hemostasis noted. The fascia was reapproximated using 0 Vicryl in a running manner. The subcutaneous tissue was irrigated with a small amount of saline and bipolar cautery used to obtain hemostasis. Two interrupted [id number] sutures of 2-0 chromic were placed in the subcutaneous tissue to prevent space. The skin was reapproximated using 4-0 Monocryl and a running subcuticular manner. Exofin applied. The patient tolerated this procedure well. Sponge, lap and instrument counts were correct x2 at the end of the procedure and the patient was taken to the recovery area in stable condition. Surgical debrief performed and specimen reviewed.
[2025-05-22] MEDS: ACETAMINOPHEN 500 MG TABLET 1000 MG PO (20:12)
[2025-05-22] MEDS: IBUPROFEN 600 MG TABLET PO (22:35)
[2025-05-23 01:47] VITALS: BP 97/59; PULSE 72; RESP 16; TEMP 36.6; O2SAT 96
[2025-05-23] MEDS: ACETAMINOPHEN 500 MG TABLET 1000 MG PO ×2 (02:04→08:22)
[2025-05-23] MEDS: IBUPROFEN 600 MG TABLET PO ×2 (04:43→10:45)
[2025-05-23 04:45] VITALS: BP 102/67; PULSE 64; RESP 16; TEMP 36.5; O2SAT 98
[2025-05-23 08:00] VITALS: BP 106/66; PULSE 63; RESP 16; TEMP 36.7; O2SAT 98
[2025-05-23 08:22] VITALS: TEMP 36.7
[2025-05-23] MEDS: DOCUSATE SODIUM 100 MG CAPSULE PO (08:26)
[2025-05-23 08:55] LABS: Hematocrit* 30.2 % (33.0-51.0); Hemoglobin* 9.9 gm/dL (12.0-16.0); Immature Granulocytes Abs Auto 0.02 K/uL (0.00-0.30); Immature Granulocytes Pct Auto 0.3 %; Lymphocytes Absolute Auto 2.11 K/uL (0.90-2.90); Mean Corpuscular HGB Conc 33 gm/dL (32-36); Mean Corpuscular Hemoglobin 31 pg (26-34); Mean Corpuscular Volume 94 fL (80-100); RDW Coefficient of Variation % 11.9 % (11.5-15.5); Red Blood Count* 3.20 m/uL (4.00-5.20); White Blood Count* 7.40 K/uL (4.50-11.00)
[2025-05-23 08:58] LABS: Slide Review Reflex No
[2025-05-23 09:13] LABS: Alanine Aminotransferase* 14 U/L (4-35); Aspartate Amino Transferase* 30 U/L (12-35); Creatinine* 0.6 mg/dL (0.5-1.5); Est. Creatinine Clearance* 120.63; Estimated Glomerular Filt Rate 129 ml/min
--- NOTE | 2025-05-23 09:44 | P.DS_ITS ---
DS: Providers Provider Date Seen: 05/23/25 Date of admission: 05/21/25 00:24 Primary care physician: Allie Alvarado MD Admitting Clinician: Armen Weeks MD Consults: 05/21/25 01:53 Consult to Rubber Compounder Supervisor [CONS] Routine Comment: Reason for Consult:: Substance Abuse Screening Attending Physician on discharge: Allie Alvarado MD DS: Diagnosis Discharge Diagnosis (1) Gestational hypertension: Status: Acute Exam Const: Vital Signs, click to edit/add: Vital Signs - 24 hr 05/22/25 12:05 05/22/25 13:40 05/22/25 13:45 Temperature 98.0 F 99.2 F Pulse Rate 70 81 Pulse Rate [Pulse Oximeter] 70 Respiratory Rate 16 13 14 Blood Pressure 102/71 111/69 Blood Pressure [Le ft Arm] 111/76 Pulse Oximetry 97 96 96 Oxygen Delivery Me thod Room Air Room Air 05/22/25 13:50 05/22/25 13:55 05/22/25 14:00 Temperature Pulse Rate 63 85 76 Pulse Rate [Pulse Oximeter] Respiratory Rate 16 17 16 Blood Pressure 110/66 111/81 126/66 Blood Pressure [Le ft Arm] Pulse Oximetry 95 96 95 Oxygen Delivery Me thod 05/22/25 14:05 05/22/25 14:23 05/22/25 14:38 Temperature 99.2 F 97.9 F 97.9 F Pulse Rate 77 95 100 Pulse Rate [Pulse Oximeter] Respiratory Rate 14 18 16 Blood Pressure 125/87 120/79 113/62 Blood Pressure [Le ft Arm] Pulse Oximetry 95 95 96 Oxygen Delivery Me thod Room Air Room Air 05/22/25 14:53 05/22/25 15:08 05/22/25 15:23 Temperature 97.9 F 98.0 F 98.0 F Pulse Rate 100 183 H 88 Pulse Rate [Pulse Oximeter] Respiratory Rate 16 18 18 Blood Pressure 113/62 111/76 161/66 H Blood Pressure [Le ft Arm] Pulse Oximetry 96 95 95 Oxygen Delivery Me thod Room Air Room Air Room Air 05/22/25 15:53 05/22/25 16:23 05/22/25 17:23 Temperature Pulse Rate 90 81 92 Pulse Rate [Pulse Oximeter] Respiratory Rate 17 17 18 Blood Pressure 113/75 120/74 119/71 Blood Pressure [Le ft Arm] Pulse Oximetry 94 95 95 Oxygen Delivery Me thod Room Air Room Air Room Air 05/22/25 18:23 05/22/25 19:30 05/22/25 20:33 Temperature 98.2 F 98.5 F 98.1 F Pulse Rate 74 71 65 Pulse Rate [Pulse Oximeter] Respiratory Rate 16 16 16 Blood Pressure 114/65 110/72 103/64 Blood Pressure [Le ft Arm] Pulse Oximetry 95 98 97 Oxygen Delivery Me thod Room Air Room Air Room Air 05/23/25 01:47 05/23/25 04:45 05/23/25 08:00 Temperature 97.8 F 97.7 F 98.0 F Pulse Rate Pulse Rate [Pulse Oximeter] 72 64 63 Respiratory Rate 16 16 16 Blood Pressure Blood Pressure [Le ft Arm] 97/59 L 102/67 106/66 Pulse Oximetry 96 98 98 Oxygen Delivery Me thod Room Air Room Air Room Air 05/23/25 08:22 Temperature 98.0 F Pulse Rate Pulse Rate [Pulse Oximeter] Respiratory Rate Blood Pressure Blood Pressure [Le ft Arm] Pulse Oximetry Oxygen Delivery Me thod OB - DS: Summary Hospital Course Hospital Course: The patient is a 25 year old G [] P [] at [] weeks gestation that was admitted to the Center on 05/21/25 for []. She had an [unc omplicated/complicated] [vaginal/] delivery. She delivered a viable [male/female] . She is [breast/bottle] feeding. the patient has done well. Peripartum Data Procedures: Procedures Operation Date: 05/22/25 11:00 Actual Procedure Side Surgeon p BILATERAL SALPINGECTOMY VIA MINI LAPAROTOMY Not Applicable Maryana Glenn Eugene MD Gender: Male Time Spent with Patient Time attestation: Total time spent providing and/or coordinating discharge services: Discharge Plan Discharge Disposition: Home, Self-Care Date of Admission: 05/21/25 00:24 Attending Provider on Discharge: Isabel Shields Primary Care Provider: Allie Alvarado Condition: Stable Anticipated Discharge Date/Time: 05/23/25 09:43 Discharge Medications: Continued ondansetron 4 mg tablet,disintegrating 4 mg PO Q8H PRN (Reason: nausea/vomiting) lamotrigine 200 mg tablet 200 mg PO DAILY One-A-Day 400 mcg- 25 mg tablet,chewable 1 tab PO QDAY Discharge Orders: Discharge Order (Routine); Ordered 05/23/25 Ordered By: Isabel Shields Patient Education: Preeclampsia and Eclampsia After Delivery (GEN), Vaginal Delivery (GEN) Additional Instructions: Continue acetaminophen 1000 mg every 6 hours as needed for pain. Maximum of 4000 mg in 24 hours. Continue ibuprofen 600 mg every 6 hours as needed for pain. Continue docusate 1-2 tablets daily for constipation. Check blood pressure once daily. Monitor for blood pressures over 140/90 as well as symptoms including headache, vision changes, right-sided abdominal pain, and sudden changes in swelling. Follow up with Dr. Alvarado for blood pressure check on Monday, 05/26 at 10:20 AM. Follow Up Appointments: Allie Alvarado MD [Primary Care Provider, Family Practice] [facility]
--- NOTE | 2025-05-23 09:53 | PM.OBDSVD1 ---
DS: Providers Provider Date Seen: 05/23/25 Date of admission: 05/21/25 00:24 Primary care physician: Allie Alvarado MD Admitting Clinician: Armen Weeks MD Consults: 05/21/25 01:53 Consult to Pooling Operator [CONS] Routine Comment: Reason for Consult:: Substance Abuse Screening Attending Physician on discharge: Isabel Shields DO Date of Discharge: 05/23/25 DS: Diagnosis Discharge Diagnosis (1) Gestational hypertension: Status: Acute (2) Depression: Status: Acute (3) KARLA (generalized anxiety disorder): Status: Acute (4) Status post vaginal delivery: Status: Acute Exam Narrative: Exam Narrative: Gen: alert, NAD Resp: CTA b/l, breathing comfortably on room air CV: RRR, no murmurs Abd: mildly tender over incision from tubal ligation. Fundus firm. No RUQ tenderness. Const: Vital Signs, click to edit/add: Vital Signs - 24 hr 05/22/25 12:05 05/22/25 13:40 05/22/25 13:45 Temperature 98.0 F 99.2 F Pulse Rate 70 81 Pulse Rate [Pulse Oximeter] 70 Respiratory Rate 16 13 14 Blood Pressure 102/71 111/69 Blood Pressure [Le ft Arm] 111/76 Pulse Oximetry 97 96 96 Oxygen Delivery Me thod Room Air Room Air 05/22/25 13:50 05/22/25 13:55 05/22/25 14:00 Temperature Pulse Rate 63 85 76 Pulse Rate [Pulse Oximeter] Respiratory Rate 16 17 16 Blood Pressure 110/66 111/81 126/66 Blood Pressure [Le ft Arm] Pulse Oximetry 95 96 95 Oxygen Delivery Me thod 05/22/25 14:05 05/22/25 14:23 05/22/25 14:38 Temperature 99.2 F 97.9 F 97.9 F Pulse Rate 77 95 100 Pulse Rate [Pulse Oximeter] Respiratory Rate 14 18 16 Blood Pressure 125/87 120/79 113/62 Blood Pressure [Le ft Arm] Pulse Oximetry 95 95 96 Oxygen Delivery Me thod Room Air Room Air 05/22/25 14:53 05/22/25 15:08 05/22/25 15:23 Temperature 97.9 F 98.0 F 98.0 F Pulse Rate 100 183 H 88 Pulse Rate [Pulse Oximeter] Respiratory Rate 16 18 18 Blood Pressure 113/62 111/76 161/66 H Blood Pressure [Le ft Arm] Pulse Oximetry 96 95 95 Oxygen Delivery Me thod Room Air Room Air Room Air 05/22/25 15:53 05/22/25 16:23 05/22/25 17:23 Temperature Pulse Rate 90 81 92 Pulse Rate [Pulse Oximeter] Respiratory Rate 17 17 18 Blood Pressure 113/75 120/74 119/71 Blood Pressure [Le ft Arm] Pulse Oximetry 94 95 95 Oxygen Delivery Me thod Room Air Room Air Room Air 05/22/25 18:23 05/22/25 19:30 05/22/25 20:33 Temperature 98.2 F 98.5 F 98.1 F Pulse Rate 74 71 65 Pulse Rate [Pulse Oximeter] Respiratory Rate 16 16 16 Blood Pressure 114/65 110/72 103/64 Blood Pressure [Le ft Arm] Pulse Oximetry 95 98 97 Oxygen Delivery Me thod Room Air Room Air Room Air 05/23/25 01:47 05/23/25 04:45 05/23/25 08:00 Temperature 97.8 F 97.7 F 98.0 F Pulse Rate Pulse Rate [Pulse Oximeter] 72 64 63 Respiratory Rate 16 16 16 Blood Pressure Blood Pressure [Le ft Arm] 97/59 L 102/67 106/66 Pulse Oximetry 96 98 98 Oxygen Delivery Me thod Room Air Room Air Room Air 05/23/25 08:22 Temperature 98.0 F Pulse Rate Pulse Rate [Pulse Oximeter] Respiratory Rate Blood Pressure Blood Pressure [Le ft Arm] Pulse Oximetry Oxygen Delivery Me thod OB - DS: Summary Hospital Course Hospital Course: The patient is a 25 year old G 3 P 2011 that was admitted to the Center on 05/20 for active labor. She had an uncomplicated vaginal delivery on 05/21/25 at 38.5 weeks' gestation. She delivered a viable female with Apgars of 9/9. She is breast feeding. She had a post- tubal ligation on 05/22/25. The patient had two non-sustained elevated blood pressures during her stay (141/63 on 05/21 and 161/66 on 05/22). Patient denies pre-eclampsia symptoms and HELLP labs were WNL. She is being sent home with a blood pressure cuff for monitoring and instructed to reach out if pre-eclampsia symptoms develop or if blood pressures are above 140/90. Peripartum Data delivery method: Vaginal Procedures: Procedures Operation Date: 05/22/25 11:00 Actual Procedure Side Surgeon p BILATERAL SALPINGECTOMY VIA MINI LAPAROTOMY Not Applicable Maryanaarsalan Eugene MD Procedures: tubal ligation/salpingectomy [place] Gender: Female Infant Discharge Plan: Home Time Spent with Patient Time attestation: Total time spent providing and/or coordinating discharge services: Discharge Plan Discharge Disposition: Home, Self-Care Date of Admission: 05/21/25 00:24 Attending Provider on Discharge: Isabel Shields Primary Care Provider: Allie Alvarado Condition: Stable Anticipated Discharge Date/Time: 05/23/25 09:43 Discharge Medications: Continued ondansetron 4 mg tablet,disintegrating 4 mg PO Q8H PRN (Reason: nausea/vomiting) lamotrigine 200 mg tablet 200 mg PO DAILY One-A-Day 400 mcg- 25 mg tablet,chewable 1 tab PO QDAY Discharge Orders: Discharge Order (Routine); Ordered 05/23/25 Ordered By: Isabel Shields Patient Education: Preeclampsia and Eclampsia After Delivery (GEN), Vaginal Delivery (GEN), OB Vaginal/Breast Feeding Additional Instructions: Continue acetaminophen 1000 mg every 6 hours as needed for pain. Maximum of 4000 mg in 24 hours. Continue ibuprofen 600 mg every 6 hours as needed for pain. Continue docusate 1-2 tablets daily for constipation. Check blood pressure once daily. Monitor for blood pressures over 140/90 as well as symptoms including headache, vision changes, right-sided abdominal pain, and sudden changes in swelling. Follow up with Dr. Alvarado for blood pressure check on Monday, 05/26 at 10:20 AM. Follow Up Appointments: Allie Alvarado MD [Primary Care Provider, Family Practice] Forms: [employer] Info Instructions
== END 2025-05-23 12:33 | disposition home or self-care (01) | DRG 798 ==
LOC: OB OUT 00:25 → OB 00:25
PROVIDERS: Family Medicine; Obstetrics & Gynecology; Admitting Provider Surgery; PCP Family Medicine; Visit Provider Family Medicine
PROC: 0UT70ZZ Resection of Bilateral Fallopian Tubes, Open Approach (ICD-10-PCS; CPT 58605; principal; 2025-05-22 11:00)
DX: O99.824 Streptococcus B carrier state complicating childbirth (principal); O13.4 Gestational [pregnancy-induced] hypertension without significant proteinuria, complicating childbirth; O99.344 Other mental disorders complicating childbirth; F32.A Depression, unspecified; F41.1 Generalized anxiety disorder; Z30.2 Encounter for sterilization; Z37.0 Single live birth; Z3A.38 38 weeks gestation of pregnancy
CPT/HCPCS: 00840; 01967; 36415; 80306; 82565; 84112; 84450; 84460; 85018; 85025; 86592; 86703; 86850; 86900; 86901; 88302; G0463; A9270; J0290; J0330; J1100; J1171; J1885; J2250; J2405; J2704; J2710; J2795; J3010; J3490; J7120; S5010